=== PATIENT | female | born 1990 | race African-American/Black ===

== ENCOUNTER 2020-09-15 21:36 | Emergency (ER) | payer BC ==
--- NOTE | 2020-09-15 22:42 | ED Physician Documentation ---
PD HPI ABD PAIN - Stated complaint Stated Complaint: CONSTIPATION - Chief complaint Chief Complaint: Abd Pain - History obtained from History obtained from: Patient - History of Present Illness Timing - onset: Yesterday Timing - details: Gradual onset Quality: Cramping Location: All over / everywhere, Other (rectum) Recently seen: Surgery - Additional information Additional information: patient underwent gastric sleeve procedure 10 days ago (09/06), has not had BM since 09/09. since yesterday, she has had increasing abdominal pain, worst at rectum. She describes stool at anal verge that is not passing. She has tried enema x 3 without results. She has been taking vicodin as prescribed for post- operative pain. Review of Systems Constitutional: denies: Fever GI: reports: Abdominal Pain, Constipation. denies: Nausea, Vomiting PD PAST MEDICAL HISTORY - Past Medical History Past Medical History: No - Past Surgical History Past Surgical History: Yes General: Gastric surgery - Allergies Allergies/Adverse Reactions: Allergies Allergy/AdvReac Type Severity Reaction Status Date / Time No Known Drug Allergies Allergy Verified 09/15/20 21:44 - Social History Does the pt smoke?: No Smoking Status: Never smoker Does the pt drink ETOH?: No Does the pt have substance abuse?: No - Immunizations Immunizations are current?: No Immunizations: TDAP current <10years, Other immun not current PD ED PE NORMAL - Vitals Vital signs reviewed: Yes - General General: Alert and oriented X 3, No acute distress, Well developed/nourished - Abdomen Abdomen: Soft, Non tender, Non distended Results - Vitals Vitals: Oxygen O2 Source Room air PD MEDICAL DECISION MAKING - ED course Complexity details: considered differential, d/w patient ED course: patient presents with constipation; no elements of H+P to suggest alternate diagnosis and abdominal exam is benign. Emergent testing is not indicated at this time. I discussed options for treatment; manual disimpaction versus d/c home with magnesium citrate and glycerin suppository (with return to ED if worse or no results). In discussion of risks/benefits of these options, she opts for d/c home and will try the magnesium citrate and glycerin suppository, return if worse or no results. Departure - Departure Disposition: Home, Self Care Clinical Impression: Constipation Qualifiers: Constipation type: unspecified constipation type Qualified Code(s): K59.00 - Constipation, unspecified Condition: Good Instructions: ED Constipation Comments: When you get home, drink one-third of the bottle of magnesium citrate and insert the glycerin suppository. If you do not have results within 2-3 hours, drink another third and repeat again after 2-3 more hours if no results. Discharge Date/Time: 09/15/20 23:14
[2020-09-15] MEDS ORDERED: GLYCERIN ADULT SUPP PR STA (23:01)
[2020-09-15] MEDS ORDERED: MAGNESIUM CITRATE 296 ML BOTTLE PO STA (23:01)
[2020-09-15 23:15] VITALS: BP 145/93
== END 2020-09-15 23:14 | disposition home or self-care (01) ==
LOC: ED 21:36
DX: K59.00 Constipation, unspecified (principal)
CPT/HCPCS: 99282; 99283; A9270